=== PATIENT | female | born 1965 | race Caucasian/White ===

== ENCOUNTER 2021-07-03 13:38 | Emergency (ER) | payer SELFPAY ==
[~2021-07-03] VITALS: Ht 162.6 cm; Wt 70.0 kg
[2021-07-03] MEDS ORDERED: MORPHINE SULFATE 4 MG/ML CPJ (NOT FOR IM USE) IV ONE (18:00)
[2021-07-03] MEDS ORDERED: HYDROCODONE/ACETAMINOPHEN 5/325MG TABLET PO ONE (21:45)
[2021-07-03 22:06] VITALS: BP 101/62
== END 2021-07-03 22:00 | disposition left against medical advice (07) ==
LOC: ER 13:38
DX: S82.142A Displaced bicondylar fracture of left tibia, initial encounter for closed fracture (principal); F17.210 Nicotine dependence, cigarettes, uncomplicated; Z88.8 Allergy status to other drugs, medicaments and biological substances; W17.89XA Other fall from one level to another, initial encounter; Y93.89 Activity, other specified; Y92.018 Other place in single-family (private) house as the place of occurrence of the external cause
CPT/HCPCS: 29505; 73552; 73562; 73590; 96374; 99284; J2270